=== PATIENT | female | born 1935 | race Caucasian/White ===

== ENCOUNTER 2018-07-13 11:52 | Inpatient (IN) | payer MEDICARE ==
--- NOTE | 2018-07-13 13:29 | ED PDOC ---
HPI: Trauma/Fall - HPI Time Seen by Provider: 07/13/18 12:40 Chief Complaint (Nursing): Trauma Chief Complaint (Provider): Trauma History Per: Patient, EMS History/Exam Limitations: no limitations Location Of Injury: Left: Face Additional Complaint(s): 83 years old female brought to ER by EMS after she was found outside on the street and sustained a laceration above left eyebrow. Patient is extremely confused and states EMS lied and she did not fall, not providing any info about family, and She cannot recall what actually happened or what year we are in or where she is right now. Patient refuses to be examined and denies any family member that can be contacted. in the chart there is a contact number- no answer. Dr Davenport as per daughter who came to bedside later on PMD: non provided Past Medical History Reviewed: Historical Data, Nursing Documentation, Vital Signs, Unable To Obtain (obtained some info from daughter) Vital Signs: Last Vital Signs Temp 98.5 F 07/13/18 11:57 Pulse 90 07/13/18 11:57 Resp 18 07/13/18 11:57 BP 169/86 H 07/13/18 11:57 Pulse Ox 95 07/13/18 11:57 - Medical History PMH: No Chronic Diseases - Surgical History Surgical History: No Surg Hx - Family History Family History: States: Unknown Family Hx - Social History Current smoker - smoking cessation education provided: No Alcohol: None Drugs: Denies - Home Medications Home Medications: Ambulatory Orders Medication Instructions Recorded Multivitamin with Minerals [Hair, 1 tab PO DAILY 07/13/18 Skin and Nails] - Allergies Allergies/Adverse Reactions: Allergies Allergy/AdvReac Type Severity Reaction Status Date / Time No Known Allergies Allergy Unverified 07/13/18 12:06 Review of Systems Review Of Systems: ROS cannot be obtained secondary to pt's inabilty to answer questions. Physical Exam - Physical Exam Appears: Positive for: Well, Non-toxic, No Acute Distress Head Exam: Positive for: NORMOCEPHALIC. Negative for: ATRAUMATIC (1.5 in laceration above left eyebrow, traversing part of the eyebrow itself. no active bleeding. no surrounding swelling or hematoma. ) Skin: Positive for: Normal Color, Warm, Dry Eye Exam: Positive for: Normal appearance ENT: Positive for: Normal ENT Inspection Neck: Positive for: Normal Cardiovascular/Chest: Positive for: Regular Rate, Rhythm Respiratory: Positive for: Normal Breath Sounds Gastrointestinal/Abdominal: Positive for: Normal Exam Extremity: Positive for: Normal ROM (ambulating w steady gait) Neurologic/Psych: Positive for: Alert. Negative for: Oriented, Aphasia, Facial Droop - Laboratory Results Result Diagrams: 07/14/18 05:45 07/14/18 05:45 - ECG O2 Sat by Pulse Oximetry: 95 (RA) Pulse Ox Interpretation: Normal Medical Decision Making Medical Decision Making: Time: 1308 Initial Plan: CONFUSION, FALL, LACERATION RULE OUT INFECTION, INTRACRANIAL BLEED --Head CT W/O Contrast --EKG --Troponin I --PTT --PT --Chest X-Ray --Urine Culture --Urinalysis --CMP --CBC --Haldol 2.5 mg IM --1:1 Observation initially during initial encouter pt not cooperative with examination, wont let me examine her, wont let me do CT head. she appears very confused and at time agitation. 1410 Patient needs sedation to relieve agitation - 2.5 mg haldol given however even with haldol pt still agitated, so given 1 mg ativan 1401 Chest X-Ray FINDINGS: LUNGS: No active pulmonary disease. PLEURA: No significant pleural effusion identified, no pneumothorax apparent. CARDIOVASCULAR: No radiographic findings to suggest acute or significant cardiovascular disease. OSSEOUS STRUCTURES: No significant abnormalities. VISUALIZED UPPER ABDOMEN: Normal. OTHER FINDINGS: None. IMPRESSION: No active disease. Time: 172 --Daughter is currently at bedside, she reports her mother has been confused for one day. Patient does not have a fever, no recent illnesses. Her mother was reportedly walking back from the bank when she fell. Case discussed with Dr. Whitaker, neurology, Dr. Ruby, medicine construction consultant. apparently pt pcp is Dr Davenport who doesnt admit here. Time: 183 Dr. Whitaker answered, will see patient as inpatient due to fall and rule out delirium vs dementia. also placed consult for cardiology construction consultant Dr White for EKG- LBBB (no prior), pvc see procedure note for laceration repair Scribe Attestation: Documented by Dinah Pettit, acting as a scribe for Maurice Momin MD. Provider Scribe Attestation: All medical record entries made by the Scribe were at my direction and personally dictated by me. I have reviewed the chart and agree that the record accurately reflects my personal performance of the history, physical exam, medical decision making, and the department course for this patient. I have also personally directed, reviewed, and agree with the discharge instructions and disposition. Procedures - Laceration/Wound Repair Left Upper Face Anesthesia: Lidocaine w/ Epi (3 cc) Wound Repaired With: Sutures Suture Size/Type: 6:0, nylon Number of Sutures: 4 Wound Complexity: Simple Progress: On the left forehead and after irrigation and cleaning 4 6:0 nylon sutures were placed without difficulty.Area was covered with bacitracin. Disposition - Clinical Impression Clinical Impression: Confusion, Fall - Patient ED Disposition Is Patient to be Admitted: Yes Counseled Patient/Family Regarding: Studies Performed, Diagnosis - Disposition Disposition Time: 17:04 Condition: FAIR - Pt Status Changed To: Hospital Disposition Of: Inpatient - Admit Certification Admit to Inpatient:: After my assessment, the patient will require h ospitalization for at least two midnights. This is because of the severity of symptoms shown, intensity of services needed, and/or the medical risk in this patient being treated as an outpatient.
[2018-07-13 13:51] LABS: PROTHROMBIN TIME 11.6 Seconds (9.8-13.1)
[2018-07-13 13:54] LABS: BASO % 0.3 % (0.0-2.0); EOS # 0.1 K/uL (0.0-0.7); EOS % 0.7 % (0.0-4.0); HEMOGLOBIN 13.9 g/dL (12.0-16.0); LYMPH # 1.6 K/uL (1.0-4.3); LYMPH % 14.8 % (20.0-40.0); MEAN CELL VOLUME 85.7 fl (81.0-99.0); MEAN CORPUSCULAR HEMOGLOBIN 28.5 pg (27.0-31.0); MEAN CORPUSCULAR HGB CONC 33.2 g/dL (33.0-37.0); MEAN PLATELET VOLUME 7.9 fl (7.2-11.7); MONO # 0.6 K/uL (0.0-0.8); MONO % 5.1 % (0.0-10.0); NEUT # 8.6 K/uL (1.8-7.0); NEUT % 79.1 % (50.0-75.0); NRBC % 0.1 % (0.0-0.0); PARTIAL THROMBOPLASTIN TIME 31.2 Seconds (25.6-37.1); RBC 4.89 Mil/uL (3.80-5.20); RED CELL DISTRIBUTION WIDTH 15.7 % (11.5-14.5); WHITE BLOOD COUNT 10.9 K/uL (4.8-10.8)
[2018-07-13] MEDS ORDERED: Tdap Vaccine 0.5 ml Vial (10-64 yrs) IM ONE ×3 (13:59→14:47)
[2018-07-13 14:03] LABS: ALB/GLOB RATIO 1.1 (1.0-2.1); ALBUMIN 4.7 g/dL (3.5-5.0); ALT/SGPT 29 U/L (9-52); AST/SGOT 24 U/L (14-36); BLOOD UREA NITROGEN 22 mg/dl (7-17); CALCIUM 9.6 mg/dL (8.4-10.2); GFR NON-AFRICAN AMERICAN > 60
--- NOTE | 2018-07-13 14:05 | RAD ---
Date of service: 07/13/2018 HISTORY: Trauma/fall. COMPARISON: No prior. FINDINGS: LUNGS: No active pulmonary disease. PLEURA: No significant pleural effusion identified, no pneumothorax apparent. CARDIOVASCULAR: No radiographic findings to suggest acute or significant cardiovascular disease. OSSEOUS STRUCTURES: No significant abnormalities. VISUALIZED UPPER ABDOMEN: Normal. OTHER FINDINGS: None. IMPRESSION: No active disease.
[2018-07-13 14:10] LABS: SQUAMOUS EPITHIAL 1 /hpf (0-5); URINE BACTERIA RARE (<OCC); URINE BILIRUBIN NEGATIVE (NEGATIVE); URINE BLOOD NEGATIVE (NEGATIVE); URINE CLARITY CLEAR (Clear); URINE COLOR YELLOW (YELLOW); URINE GLUCOSE (UA) NEG (Normal); URINE LEUKOCYTE ESTERASE TRACE Leu/uL (Negative); URINE PROTEIN 30 mg/dL (NEGATIVE); URINE UROBILINOGEN 0.2-1.0 mg/dL (0.2-1.0)
--- NOTE | 2018-07-13 16:17 | CT ---
Date of service: 07/13/2018 PROCEDURE: CT HEAD WITHOUT CONTRAST. HISTORY: headache COMPARISON: None available. TECHNIQUE: Axial computed tomography images were obtained through the head/brain without intravenous contrast. Radiation dose: Total exam DLP = 1482.17 mGy-cm. This CT exam was performed using one or more of the following dose reduction techniques: Automated exposure control, adjustment of the mA and/or kV according to patient size, and/or use of iterative reconstruction technique. FINDINGS: Limitations: Motion artifacts. Multiple series of been performed to attempt to overcome this problem. HEMORRHAGE: No intracranial hemorrhage. BRAIN: Good corticomedullary differentiation is seen. Proportional, diffuse expansion of the ventriculosulcal and cisternal spaces is appreciated with white matter lucency compatible with diffuse cerebral atrophy and chronic microangiopathy. No suspicious extra-axial fluid collection is identified and the midline brain anatomy appears grossly nonfocal as imaged. There is no mass effect throughout. VENTRICLES: Unremarkable. No hydrocephalus. CALVARIUM: No destructive bony lesion or displaced fracture identified including through the skullbase. PARANASAL SINUSES: Unremarkable as visualized. No significant inflammatory changes. MASTOID AIR CELLS: Unremarkable as visualized. No inflammatory changes. OTHER FINDINGS: None. IMPRESSION: Age-appropriate age related neuro degenerative changes are identified. No definite acute intracranial findings by standard CT criteria.
--- NOTE | 2018-07-13 16:56 | CT ---
Date of service: 07/13/18 CT maxillofacial bones without IV contrast Indication: Facial injury Comparison: None available Technique: Axial computed tomography images were obtained of the maxillofacial bones without the use of intravenous contrast. Coronal and sagittal reformatted images were generated and reviewed. This CT exam was performed using 1 or more of the following dose reduction techniques: Automated exposure control, adjustment of the MAA and/or kV according to patient size, and/or use of iterative reconstruction technique. Radiation dose: Total exam DLP = 735.66 mGy-cm. Findings: Soft tissue laceration, left frontal scalp. The facial bones appear intact without acute displaced fracture identified. The orbits appear unremarkable. The temporomandibular joints are located. Partial opacification/small fluid within the right mastoid air cells. The left mastoid air cells are clear. Mucosal thickening, left maxillary sinus. The paranasal sinuses appear otherwise clear. Streak artifact from dental hardware. 6 mm lucent rounded lesion within the right transverse process of C4 Impression: No acute displaced fracture or subluxation. Soft tissue laceration, left frontal scalp. Partial opacification/small fluid within the right mastoid air cells. Correlate clinically for mastoiditis. 6 mm lucent rounded lesion within the right transverse process of C4.
[2018-07-13] MEDS ORDERED: Lidocaine 1% Inj (20ml) IJ ONE (17:18)
[2018-07-13] MEDS ORDERED: Lidocaine 1% w Epi 1:100,000 Inj ONE (17:46)
[2018-07-13 18:15] LABS: VENOUS BLOOD GAS BASE EXCESS -0.2 mmol/L (0.0-2.0); VENOUS BLOOD GAS PCO2 47 mmHg (40-60); VENOUS BLOOD GAS PO2 29 mm/Hg (30-55); VENOUS BLOOD PH 7.35 (7.32-7.43)
[2018-07-13] MEDS ORDERED: ceFAZolin 1 GM in Sodium Chloride 0.9% 100 ML IVPB STA (18:28)
[2018-07-13 18:44] LABS: BARBITURATES, UR NEGATIVE (NEGATIVE); BENZODIAZEPINES, UR NEGATIVE (NEGATIVE); OPIATES, UR NEGATIVE (NEGATIVE); PHENCYCLIDINE, UR NEGATIVE (NEGATIVE)
[2018-07-14 06:25] LABS: HEMOGLOBIN 13.6 g/dL (12.0-16.0); MEAN CELL VOLUME 84.9 fl (81.0-99.0); MEAN CORPUSCULAR HEMOGLOBIN 28.8 pg (27.0-31.0); RBC 4.72 Mil/uL (3.80-5.20); RED CELL DISTRIBUTION WIDTH 15.6 % (11.5-14.5); WHITE BLOOD COUNT 7.4 K/uL (4.8-10.8)
[2018-07-14 06:40] LABS: ALB/GLOB RATIO 1.1 (1.0-2.1); ALBUMIN 4.1 g/dL (3.5-5.0); ALT/SGPT 23 U/L (9-52); AST/SGOT 26 U/L (14-36); BLOOD UREA NITROGEN 15 mg/dl (7-17); CALCIUM 9.3 mg/dL (8.4-10.2); GFR NON-AFRICAN AMERICAN > 60; HDL CHOLESTEROL 43 MG/DL (30-70)
[2018-07-14 06:45] LABS: LDL CHOLESTEROL 162 mg/dL (0-129)
--- NOTE | 2018-07-14 06:48 | CARD ---
APPROVED REPORT Date of service: 07/13/2018 EKG Measurement Heart [id number] <Conclusion> Sinus rhythm with blocked premature atrial complexes with premature supraventricular complexes Left axis deviation Left bundle branch block Abnormal ECG
--- NOTE | 2018-07-14 12:43 | CP.PCM.CON ---
History of Present Illness - History of Present Illness History of Present Illness: asked to see pt for syncope. At bedside pt confused. She states she didnt have syncope or facial trauma. pt is confused. aao x 1. ekg shows sr with lbbb and pvcs. pt denies cp, palp, lh, dizziness, sob or orthopnea. trop neg Review of Systems - Review of Systems Systems not reviewed;Unavailable: Altered Mental Status Past Patient History - Past Medical History & Family History Past Medical History?: No - Past Social History Smoking Status: Never Smoked Chewing Tobacco Use: No Cigar Use: No Alcohol: None Drugs: Denies Home Situation {Lives}: Alone Domestic Violence: Negative - CARDIAC Hx Cardiac Disorders: No - PULMONARY Hx Respiratory Disorders: No - NEUROLOGICAL Hx Neurological Disorder: No - HEENT Hx HEENT Problems: No - RENAL Hx Chronic Kidney Disease: No - ENDOCRINE/METABOLIC Hx Endocrine Disorders: No (a) - HEMATOLOGICAL/ONCOLOGICAL Hx Blood Disorders: No - INTEGUMENTARY Hx Dermatological Problems: No - MUSCULOSKELETAL/RHEUMATOLOGICAL Hx Falls: No - GASTROINTESTINAL Hx Gastrointestinal Disorders: No - GENITOURINARY/GYNECOLOGICAL Hx Genitourinary Disorders: No - PSYCHIATRIC Hx Psychophysiologic Disorder: No Hx Substance Use: No - SURGICAL HISTORY Hx Surgeries: No - ANESTHESIA Hx Anesthesia: No Hx Anesthesia Reactions: No Hx Malignant Hyperthermia: No Meds Allergies/Adverse Reactions: Allergies Allergy/AdvReac Type Severity Reaction Status Date / Time No Known Allergies Allergy Unverified 07/13/18 12:06 - Medications Medications: Current Medications Lorazepam (Ativan) 1 mg IVP Q8 PRN PRN Reason: Agitation Physical Exam - Constitutional Appears: Non-toxic - Head Exam Additional comments: facial bruising noted - Eye Exam Eye Exam: EOMI, Normal appearance, PERRL Pupil Exam: NORMAL ACCOMODATION, PERRL - ENT Exam ENT Exam: Mucous Membranes Moist, Normal Exam - Neck Exam Neck exam: Positive for: Normal Inspection - Respiratory Exam Respiratory Exam: Clear to Auscultation Bilateral, NORMAL BREATHING PATTERN - Cardiovascular Exam Cardiovascular Exam: REGULAR RHYTHM, +S1, +S2, Systolic Murmur - GI/Abdominal Exam GI & Abdominal Exam: Normal Bowel Sounds, Soft. absent: Bruit, Diminished Bowel Sounds, Distended, Firm, Guarding, Hernia, Hyperactive Bowel Sounds, Hypoactive Bowel Sounds, Mass, Organomegaly, Pulsatile Mass, Rebound, Rigid, Tenderness - Rectal Exam Rectal Exam: Deferred - Extremities Exam Extremities exam: Positive for: normal inspection, pedal pulses present. Negative for: calf tenderness, full ROM, joint swelling, normal capillary refill, pedal edema, tenderness - Back Exam Back exam: NORMAL INSPECTION. absent: CVA tenderness (L), CVA tenderness (R), FULL ROM, muscle spasm, paraspinal tenderness, rash noted, tenderness, vertebral tenderness - Neurological Exam Neurological exam: Altered, CN II-XII Intact, Normal Gait, Reflexes Normal - Psychiatric Exam Psychiatric exam: Normal Affect, Normal Mood - Skin Skin Exam: Dry, Intact, Normal Color, Warm Results - Vital Signs Recent Vital Signs: Last Vital Signs Temp 98.5 F 07/14/18 08:34 Pulse 65 07/14/18 08:34 Resp 20 07/14/18 08:34 BP 149/78 07/14/18 08:34 Pulse Ox 94 L 07/14/18 08:34 - Labs Result Diagrams: 07/15/18 04:00 07/15/18 04:00 Labs: Laboratory Results - last 24 hr 07/13/18 07/13/18 07/13/18 13:40 13:40 13:40 WBC 10.9 H RBC 4.89 Hgb 13.9 Hct 41.9 MCV 85.7 MCH 28.5 MCHC 33.2 RDW 15.7 H Plt Count 208 MPV 7.9 Neut % (Auto) 79.1 H Lymph % (Auto) 14.8 L Cotton % (Auto) 5.1 Eos % (Auto) 0.7 Baso % (Auto) 0.3 Neut # (Auto) 8.6 H Lymph # (Auto) 1.6 Cotton # (Auto) 0.6 Eos # (Auto) 0.1 Baso # (Auto) 0.0 PT 11.6 INR 1.0 APTT 31.2 pO2 VBG pH VBG pCO2 VBG HCO3 VBG Total CO2 VBG O2 Sat (Calc) VBG Base Excess VBG Potassium Glucose Lactate FiO2 Sodium 141 Potassium 3.9 Chloride 108 H Carbon Dioxide 23 Anion Gap 14 BUN 22 H Creatinine 0.7 Est GFR ( Amer) > 60 Est GFR (Non-Af Amer) > 60 Random Glucose 120 H Hemoglobin A1c Calcium 9.6 Total Bilirubin 0.5 AST 24 ALT 29 Alkaline Phosphatase 88 Troponin I 0.0160 Total Protein 8.9 H Albumin 4.7 Globulin 4.2 H Albumin/Globulin Ratio 1.1 Triglycerides Cholesterol LDL Cholesterol Direct HDL Cholesterol Venous Blood Potassium Urine Color Urine Clarity Urine pH Ur Specific [place] Urine Protein Urine Glucose (UA) Urine Ketones Urine Blood Urine Nitrate Urine Bilirubin Urine Urobilinogen Ur Leukocyte Esterase Urine RBC (Auto) Urine Microscopic WBC Ur Squamous Epith Cells Urine Bacteria Urine Opiates Screen Urine Methadone Screen Ur Barbiturates Screen Ur Phencyclidine Scrn Ur Amphetamines Screen U Benzodiazepines Scrn U Oth Cocaine Metabols U Cannabinoids Screen 07/13/18 07/13/18 07/13/18 13:50 18:00 18:12 WBC RBC Hgb Hct MCV MCH MCHC RDW Plt Count MPV Neut % (Auto) Lymph % (Auto) Cotton % (Auto) Eos % (Auto) Baso % (Auto) Neut # (Auto) Lymph # (Auto) Cotton # (Auto) Eos # (Auto) Baso # (Auto) PT INR APTT pO2 29 L VBG pH 7.35 VBG pCO2 47 VBG HCO3 23.5 VBG Total CO2 27.3 VBG O2 Sat (Calc) 59.2 VBG Base Excess -0.2 L VBG Potassium 3.8 Glucose 101 Lactate 1.9 FiO2 21.0 Sodium 140.0 Potassium Chloride 106.0 Carbon Dioxide Anion Gap BUN Creatinine Est GFR ( Amer) Est GFR (Non-Af Amer) Random Glucose Hemoglobin A1c Calcium Total Bilirubin AST ALT Alkaline Phosphatase Troponin I Total Protein Albumin Globulin Albumin/Globulin Ratio Triglycerides Cholesterol LDL Cholesterol Direct HDL Cholesterol Venous Blood Potassium 3.8 Urine Color Yellow Urine Clarity Clear Urine pH 6.0 Ur Specific [place] 1.018 Urine Protein 30 Urine Glucose (UA) Neg Urine Ketones Negative Urine Blood Negative Urine Nitrate Negative Urine Bilirubin Negative Urine Urobilinogen 0.2-1.0 Ur Leukocyte Esterase Trace Urine RBC (Auto) 2 Urine Microscopic WBC 1 Ur Squamous Epith Cells 1 Urine Bacteria Rare Urine Opiates Screen Negative Urine Methadone Screen Negative Ur Barbiturates Screen Negative Ur Phencyclidine Scrn Negative Ur Amphetamines Screen Negative U Benzodiazepines Scrn Negative U Oth Cocaine Metabols Negative U Cannabinoids Screen Negative 07/14/18 07/14/18 07/14/18 05:45 05:45 05:45 WBC 7.4 RBC 4.72 Hgb 13.6 Hct 40.1 MCV 84.9 MCH 28.8 MCHC 34.0 RDW 15.6 H Plt Count 194 MPV Neut % (Auto) Lymph % (Auto) Cotton % (Auto) Eos % (Auto) Baso % (Auto) Neut # (Auto) Lymph # (Auto) Cotton # (Auto) Eos # (Auto) Baso # (Auto) PT INR APTT pO2 VBG pH VBG pCO2 VBG HCO3 VBG Total CO2 VBG O2 Sat (Calc) VBG Base Excess VBG Potassium Glucose Lactate FiO2 Sodium 143 Potassium 3.8 Chloride 109 H Carbon Dioxide 28 Anion Gap 10 BUN 15 Creatinine 0.7 Est GFR ( Amer) > 60 Est GFR (Non-Af Amer) > 60 Random Glucose 87 Hemoglobin A1c 6.2 Calcium 9.3 Total Bilirubin 0.9 AST 26 ALT 23 Alkaline Phosphatase 63 Troponin I Total Protein 7.8 Albumin 4.1 Globulin 3.7 Albumin/Globulin Ratio 1.1 Triglycerides 127 Cholesterol 233 H LDL Cholesterol Direct 162 H HDL Cholesterol 43 Venous Blood Potassium Urine Color Urine Clarity Urine pH Ur Specific [place] Urine Protein Urine Glucose (UA) Urine Ketones Urine Blood Urine Nitrate Urine Bilirubin Urine Urobilinogen Ur Leukocyte Esterase Urine RBC (Auto) Urine Microscopic WBC Ur Squamous Epith Cells Urine Bacteria Urine Opiates Screen Urine Methadone Screen Ur Barbiturates Screen Ur Phencyclidine Scrn Ur Amphetamines Screen U Benzodiazepines Scrn U Oth Cocaine Metabols U Cannabinoids Screen - EKG Data EKG Interpreted by: Myself EKG shows normal: Sinus rhythm Assessment & Plan (1) LBBB (left bundle branch block) Status: Acute (2) Confusion Status: Acute (3) Syncope Status: Acute - Assessment and Plan (Free Text) Plan: check echo trop neg Unknown if LBBB is old or new, however without sx will not have pt undergo stress. 40 min total
--- NOTE | 2018-07-14 13:27 | CP.PCM.HP ---
History of Present Illness - History of Present Illness History of Present Illness: 83 years old female w/o relevant PMH is brought to ER by EMS after she was found outside on the floor and sustained a laceration above left eyebrow. As per daughter her mother was reportedly walking back from the bank when she fell. Tk mendez is extremely confused and states EMD lied and she did not fall. Patient cannot recall what actually happened or what year we are in or where she is right now. Patient refuses to be examined. PMD: Dr Davenport as per daughter PMH: denies PSH: denies FMH: noncontributory Meds: see guy NKDA SH: denies etoh, smoking or drugs use Present on Admission - Present on Admission Any Indicators Present on Admission: No Review of Systems - Review of Systems All systems: reviewed and no additional remarkable complaints except (HPI) Past Patient History - Past Medical History & Family History Past Medical History?: No - Past Social History Smoking Status: Never Smoked - MUSCULOSKELETAL/RHEUMATOLOGICAL Hx Falls: No - PSYCHIATRIC Hx Substance Use: No - SURGICAL HISTORY Hx Surgeries: No - ANESTHESIA Hx Anesthesia: No Hx Anesthesia Reactions: No Hx Malignant Hyperthermia: No Meds Allergies/Adverse Reactions: Allergies Allergy/AdvReac Type Severity Reaction Status Date / Time No Known Allergies Allergy Unverified 07/13/18 12:06 Physical Exam - Constitutional Appears: No Acute Distress - Head Exam Head Exam: NORMAL INSPECTION - Eye Exam Eye Exam: EOMI, PERRL - Respiratory Exam Respiratory Exam: Clear to Auscultation Bilateral - Cardiovascular Exam Cardiovascular Exam: REGULAR RHYTHM, +S1, +S2 - GI/Abdominal Exam GI & Abdominal Exam: Soft. absent: Distended, Tenderness - Extremities Exam Extremities exam: Negative for: calf tenderness - Neurological Exam Neurological exam: Alert Additional comments: Disoriented - Skin Skin Exam: Dry, Warm Additional comments: L eyebrow laceration ~1.5 cm, no active bleeding, stiches noted in place Results - Vital Signs Recent Vital Signs: Last Vital Signs Temp 98.5 F 07/14/18 08:34 Pulse 65 07/14/18 08:34 Resp 20 07/14/18 08:34 BP 149/78 07/14/18 08:34 Pulse Ox 94 L 07/14/18 08:34 - Labs Result Diagrams: 07/14/18 05:45 07/14/18 05:45 Labs: Laboratory Results - last 24 hr 07/13/18 07/13/18 07/13/18 13:40 13:40 13:40 WBC 10.9 H RBC 4.89 Hgb 13.9 Hct 41.9 MCV 85.7 MCH 28.5 MCHC 33.2 RDW 15.7 H Plt Count 208 MPV 7.9 Neut % (Auto) 79.1 H Lymph % (Auto) 14.8 L [place] % (Auto) 5.1 Eos % (Auto) 0.7 Baso % (Auto) 0.3 Neut # (Auto) 8.6 H Lymph # (Auto) 1.6 [place] # (Auto) 0.6 Eos # (Auto) 0.1 Baso # (Auto) 0.0 PT 11.6 INR 1.0 APTT 31.2 pO2 VBG pH VBG pCO2 VBG HCO3 VBG Total CO2 VBG O2 Sat (Calc) VBG Base Excess VBG Potassium Glucose Lactate FiO2 Sodium 141 Potassium 3.9 Chloride 108 H Carbon Dioxide 23 Anion Gap 14 BUN 22 H Creatinine 0.7 Est GFR ( Amer) > 60 Est GFR (Non-Af Amer) > 60 Random Glucose 120 H Hemoglobin A1c Calcium 9.6 Total Bilirubin 0.5 AST 24 ALT 29 Alkaline Phosphatase 88 Troponin I 0.0160 Total Protein 8.9 H Albumin 4.7 Globulin 4.2 H Albumin/Globulin Ratio 1.1 Triglycerides Cholesterol LDL Cholesterol Direct HDL Cholesterol Venous Blood Potassium Urine Color Urine Clarity Urine pH Ur Specific [place] Urine Protein Urine Glucose (UA) Urine Ketones Urine Blood Urine Nitrate Urine Bilirubin Urine Urobilinogen Ur Leukocyte Esterase Urine RBC (Auto) Urine Microscopic WBC Ur Squamous Epith Cells Urine Bacteria Urine Opiates Screen Urine Methadone Screen Ur Barbiturates Screen Ur Phencyclidine Scrn Ur Amphetamines Screen U Benzodiazepines Scrn U Oth Cocaine Metabols U Cannabinoids Screen 07/13/18 07/13/18 07/13/18 13:50 18:00 18:12 WBC RBC Hgb Hct MCV MCH MCHC RDW Plt Count MPV Neut % (Auto) Lymph % (Auto) [place] % (Auto) Eos % (Auto) Baso % (Auto) Neut # (Auto) Lymph # (Auto) [place] # (Auto) Eos # (Auto) Baso # (Auto) PT INR APTT pO2 29 L VBG pH 7.35 VBG pCO2 47 VBG HCO3 23.5 VBG Total CO2 27.3 VBG O2 Sat (Calc) 59.2 VBG Base Excess -0.2 L VBG Potassium 3.8 Glucose 101 Lactate 1.9 FiO2 21.0 Sodium 140.0 Potassium Chloride 106.0 Carbon Dioxide Anion Gap BUN Creatinine Est GFR ( Amer) Est GFR (Non-Af Amer) Random Glucose Hemoglobin A1c Calcium Total Bilirubin AST ALT Alkaline Phosphatase Troponin I Total Protein Albumin Globulin Albumin/Globulin Ratio Triglycerides Cholesterol LDL Cholesterol Direct HDL Cholesterol Venous Blood Potassium 3.8 Urine Color Yellow Urine Clarity Clear Urine pH 6.0 Ur Specific [place] 1.018 Urine Protein 30 Urine Glucose (UA) Neg Urine Ketones Negative Urine Blood Negative Urine Nitrate Negative Urine Bilirubin Negative Urine Urobilinogen 0.2-1.0 Ur Leukocyte Esterase Trace Urine RBC (Auto) 2 Urine Microscopic WBC 1 Ur Squamous Epith Cells 1 Urine Bacteria Rare Urine Opiates Screen Negative Urine Methadone Screen Negative Ur Barbiturates Screen Negative Ur Phencyclidine Scrn Negative Ur Amphetamines Screen Negative U Benzodiazepines Scrn Negative U Oth Cocaine Metabols Negative U Cannabinoids Screen Negative 07/14/18 07/14/18 07/14/18 05:45 05:45 05:45 WBC 7.4 RBC 4.72 Hgb 13.6 Hct 40.1 MCV 84.9 MCH 28.8 MCHC 34.0 RDW 15.6 H Plt Count 194 MPV Neut % (Auto) Lymph % (Auto) [place] % (Auto) Eos % (Auto) Baso % (Auto) Neut # (Auto) Lymph # (Auto) [place] # (Auto) Eos # (Auto) Baso # (Auto) PT INR APTT pO2 VBG pH VBG pCO2 VBG HCO3 VBG Total CO2 VBG O2 Sat (Calc) VBG Base Excess VBG Potassium Glucose Lactate FiO2 Sodium 143 Potassium 3.8 Chloride 109 H Carbon Dioxide 28 Anion Gap 10 BUN 15 Creatinine 0.7 Est GFR ( Amer) > 60 Est GFR (Non-Af Amer) > 60 Random Glucose 87 Hemoglobin A1c 6.2 Calcium 9.3 Total Bilirubin 0.9 AST 26 ALT 23 Alkaline Phosphatase 63 Troponin I Total Protein 7.8 Albumin 4.1 Globulin 3.7 Albumin/Globulin Ratio 1.1 Triglycerides 127 Cholesterol 233 H LDL Cholesterol Direct 162 H HDL Cholesterol 43 Venous Blood Potassium Urine Color Urine Clarity Urine pH Ur Specific [place] Urine Protein Urine Glucose (UA) Urine Ketones Urine Blood Urine Nitrate Urine Bilirubin Urine Urobilinogen Ur Leukocyte Esterase Urine RBC (Auto) Urine Microscopic WBC Ur Squamous Epith Cells Urine Bacteria Urine Opiates Screen Urine Methadone Screen Ur Barbiturates Screen Ur Phencyclidine Scrn Ur Amphetamines Screen U Benzodiazepines Scrn U Oth Cocaine Metabols U Cannabinoids Screen Assessment & Plan - Assessment and Plan (Free Text) Assessment: 83 years old female w/o relevant PMH admitted due to confusion of new onset r/o dementia vs delirium. Plan: - admit to [facility] - afebril, no medical issues - s/p haldol - EKG: sinus rhythm with PAC - head CT: negative for bleeding, masses or fractures - CXR: No active disease. - cbc and cmp wnl, UA negative for UTI, urine drug negative - Troponins negative x3 - Cardio consulted, appreciated recommendations - Neurology consulted, recommendations appreciated. - will monitor, rest of plan as ordered - f/u labs and echo in am Case seen and examined with Dr Salvador
--- NOTE | 2018-07-14 20:06 | CP.PCM.CON ---
History of Present Illness - History of Present Illness History of Present Illness: Neurology Consultation Note: Mrs. Crawford is an 83-year-old woman, who was referred to me by Dr. Ruby, after she reportedly had a fall on her way back from the back, probable LOC, and subsequent confusion. Non-contrast CT scan of the head did not show any acute findings. When I saw the patient, she continued to be confused and was not certain about why she was in the hospital. She admitted to having a fall 2 weeks ago, but does not recall falling yesterday. Review of Systems - Review of Systems Systems not reviewed;Unavailable: Altered Mental Status Past Patient History - Past Medical History & Family History Past Medical History?: No - Past Social History Smoking Status: Never Smoked - MUSCULOSKELETAL/RHEUMATOLOGICAL Hx Falls: No - PSYCHIATRIC Hx Substance Use: No - SURGICAL HISTORY Hx Surgeries: No - ANESTHESIA Hx Anesthesia: No Hx Anesthesia Reactions: No Hx Malignant Hyperthermia: No Meds Allergies/Adverse Reactions: Allergies Allergy/AdvReac Type Severity Reaction Status Date / Time No Known Allergies Allergy Unverified 07/13/18 12:06 - Medications Medications: Current Medications Lorazepam (Ativan) 1 mg IVP Q8 PRN PRN Reason: Agitation Physical Exam - Constitutional Appears: Well - Head Exam Additional comments: laceration over left eye with some echymosis under the eye - Eye Exam Eye Exam: Periorbital swelling - ENT Exam ENT Exam: Mucous Membranes Moist, Normal Exam - Neck Exam Neck exam: Positive for: Full Rom, Normal Inspection - Respiratory Exam Respiratory Exam: Clear to Auscultation Bilateral, NORMAL BREATHING PATTERN - Cardiovascular Exam Cardiovascular Exam: REGULAR RHYTHM, +S1, +S2 - GI/Abdominal Exam GI & Abdominal Exam: Normal Bowel Sounds, Soft. absent: Tenderness - Rectal Exam Rectal Exam: Deferred - Back Exam Back exam: NORMAL INSPECTION - Neurological Exam Neurological exam: Alert, CN II-XII Intact, Normal Gait, Oriented x3, Reflexes Normal - Psychiatric Exam Psychiatric exam: Normal Affect, Normal Mood Results - Vital Signs Recent Vital Signs: Last Vital Signs Temp 98.3 F 07/14/18 16:31 Pulse 61 07/14/18 16:31 Resp 18 07/14/18 16:31 BP 156/79 H 07/14/18 16:31 Pulse Ox 95 07/14/18 16:31 - Labs Result Diagrams: 07/14/18 05:45 07/14/18 05:45 Labs: Laboratory Results - last 24 hr 07/14/18 07/14/18 07/14/18 05:45 05:45 05:45 WBC 7.4 RBC 4.72 Hgb 13.6 Hct 40.1 MCV 84.9 MCH 28.8 MCHC 34.0 RDW 15.6 H Plt Count 194 Sodium 143 Potassium 3.8 Chloride 109 H Carbon Dioxide 28 Anion Gap 10 BUN 15 Creatinine 0.7 Est GFR ( Amer) > 60 Est GFR (Non-Af Amer) > 60 Random Glucose 87 Hemoglobin A1c 6.2 Calcium 9.3 Total Bilirubin 0.9 AST 26 ALT 23 Alkaline Phosphatase 63 Total Protein 7.8 Albumin 4.1 Globulin 3.7 Albumin/Globulin Ratio 1.1 Triglycerides 127 Cholesterol 233 H LDL Cholesterol Direct 162 H HDL Cholesterol 43 Assessment & Plan (1) Syncope Assessment and Plan: It is not clear what actually transpired, but it appears that the patient fell, probably lost consciousness and has lacerations on her head. There is no evidence of intracranial injury on CT head. However, the patient will require cardiac work-up and should be on telemetry. I recommend CTA of the head/neck to rule out VBI as well. Status: Acute (2) Confusion Assessment and Plan: The patient continues to be confused and does not really know why she is in the hospital. I recommend obtaining an EEG for further evaluation. If this is normal, then an MRI of the brain can also be obtained as an outpatient for further work-up. Thank you for this consultation. Status: Acute
--- NOTE | 2018-07-14 20:46 | CARD ---
APPROVED REPORT Date of service: 07/14/2018 EXAM: Two-dimensional and M-mode echocardiogram with Doppler and color Doppler. Other Information Quality : AverageRhythm : NSR INDICATION Fall 2D DIMENSIONS IVSd0.91 (0.7-1.1cm)LVDd4.19 (3.9-5.9cm) LVOT Diameter1.71 (1.8-2.4cm)PWd0.83 (0.7-1.1cm) IVSs1.13 (0.8-1.2cm)LVDs3.28 (2.5-4.0cm) FS (%) 21.6 %PWs1.27 (0.8-1.2cm) M-Mode DIMENSIONS Left Atrium (MM)2.53 (2.5-4.0cm)Aortic Root3.47 (2.2-3.7cm) Aortic Cusp Exc.2.44 (1.5-2.0cm) Aortic Valve AoV Peak Wrukzhip334.8cm/sAoV VTI21.8cmAO Peak GR.5mmHg LVOT Peak Arkcliap04.5cm/Lia Mean GR.3mmHgAVA (VMAX)0.83cm2 Mitral Valve MV E Stspafvf76.8cm/sMV DECEL [id number] A Ncegutnb28.3cm/s MV AYB52bnP/A ratio0.5MVA (PHT)2.73cm2 TDI Lateral E' Peak V7.09cm/sMedial E' Peak V3.75cm/sE/Lateral E'7.2 E/Medial E'13.5 Tricuspid Valve TR Peak Wzxjzlzl750iq/sRAP [id number] Peak Gr.18mmHg [id number] LEFT VENTRICLE The left ventricle is normal size. There is normal left ventricular wall thickness. The left ventricular systolic function is normal. The estimated ejection fraction is 55-60% No regional wall motion abnormalities noted.. Transmitral Doppler flow pattern is Grade I-abnormal relaxation pattern. No left ventricle thrombus noted on this study. There is no ventricular septal defect visualized. There is no left ventricular aneurysm. There is no mass noted in the left ventricle. RIGHT VENTRICLE The right ventricle is normal size. There is normal right ventricular wall thickness. The right ventricular systolic function is normal. ATRIA The left atrium size is normal. The right atrium size is normal. The interatrial septum is intact with no evidence for an atrial septal defect. AORTIC VALVE The aortic valve is normal in structure. Trace to mild aortic regurgitation is present. There is no aortic valvular stenosis. There is no aortic valvular vegetation. MITRAL VALVE The mitral valve is normal in structure. There is no evidence of mitral valve prolapse. There is no mitral valve stenosis. There is no mitral valve regurgitation noted. TRICUSPID VALVE The tricuspid valve is normal in structure. There is mild tricuspid valve regurgitation noted. RVSP is calculated at 29 mm Hg. There is no tricuspid valve prolapse or vegetation. There is no tricuspid valve stenosis. PULMONIC VALVE The pulmonary valve is normal in structure. There is no pulmonic valvular regurgitation. There is no pulmonic valvular stenosis. GREAT VESSELS The aortic root is normal in size. The ascending aorta is normal in size. The pulmonary artery is normal. The IVC is normal in size and collapses >50% with inspiration. PERICARDIAL EFFUSION There is no pericardial effusion. There is no pleural effusion. <Conclusion> The estimated ejection fraction is 55-60% Transmitral Doppler flow pattern is Grade I-abnormal relaxation pattern. The left atrium size is normal. Trace to mild aortic regurgitation is present. There is mild tricuspid valve regurgitation noted. RVSP is calculated at 29 mm Hg.
[2018-07-15 12:02] LABS: BASO # 0.1 K/uL (0.0-0.2); BASO % 0.7 % (0.0-2.0); EOS # 0.1 K/uL (0.0-0.7); EOS % 1.4 % (0.0-4.0); HEMOGLOBIN 14.2 g/dL (12.0-16.0); LYMPH # 1.9 K/uL (1.0-4.3); MEAN CELL VOLUME 86.1 fl (81.0-99.0); MEAN CORPUSCULAR HEMOGLOBIN 28.4 pg (27.0-31.0); MEAN PLATELET VOLUME 8.3 fl (7.2-11.7); MONO # 0.6 K/uL (0.0-0.8); MONO % 7.1 % (0.0-10.0); NEUT # 5.8 K/uL (1.8-7.0); NEUT % 68.8 % (50.0-75.0); RBC 4.99 Mil/uL (3.80-5.20); RED CELL DISTRIBUTION WIDTH 15.9 % (11.5-14.5); WHITE BLOOD COUNT 8.4 K/uL (4.8-10.8)
[2018-07-15] MEDS: Enoxaparin 40 mg Syringe SC SCH (12:03)
[2018-07-15 12:18] LABS: ALB/GLOB RATIO 1.1 (1.0-2.1); ALBUMIN 4.4 g/dL (3.5-5.0); ALT/SGPT 29 U/L (9-52); AST/SGOT 29 U/L (14-36); BLOOD UREA NITROGEN 18 mg/dl (7-17); CALCIUM 9.6 mg/dL (8.4-10.2); GFR NON-AFRICAN AMERICAN > 60
--- NOTE | 2018-07-15 13:06 | CP.PCM.PN ---
Subjective - Date & Time of Evaluation Date of Evaluation: 07/15/18 Time of Evaluation: 13:06 - Subjective Subjective: Patient seen and examined today at bedside, family in room, reports feeling better, no complaints at this time Afebrile. VSS, patient to be transferred to [facility] for close monitoring as per Neuro Objective - Vital Signs/Intake and Output Vital Signs (last 24 hours): Temp Pulse Resp BP Pulse Ox 98.1 F 82 17 155/92 H 98 07/15/18 12:35 07/15/18 12:35 07/15/18 12:35 07/15/18 12:35 07/15/18 12:35 - Medications Medications: Current Medications Enoxaparin Sodium (Lovenox) 40 mg SC DAILY KARLEE; Protocol Last Admin: 07/15/18 12:03 Dose: 40 mg Lorazepam (Ativan) 1 mg IVP Q8 PRN PRN Reason: Agitation - Labs Labs: 07/15/18 04:00 07/15/18 04:00 PT 11.6 Seconds (9.8-13.1) 07/13/18 13:40 INR 1.0 07/13/18 13:40 APTT 31.2 Seconds (25.6-37.1) 07/13/18 13:40 - Constitutional Appears: No Acute Distress - Head Exam Head Exam: NORMAL INSPECTION - Eye Exam Eye Exam: EOMI, PERRL - Respiratory Exam Respiratory Exam: Clear to Ausculation Bilateral - Cardiovascular Exam Cardiovascular Exam: REGULAR RHYTHM, +S1, +S2 - GI/Abdominal Exam GI & Abdominal Exam: Soft. absent: Distended, Tenderness - Extremities Exam Extremities Exam: absent: Calf Tenderness - Neurological Exam Neurological Exam: Alert, Awake, Oriented x3 - Skin Additional comments: L eyebrow laceration ~1.5 cm, no active bleeding, stiches noted in place, bruise noted on lower left eyelid and chin Assessment and Plan - Assessment and Plan (Free Text) Assessment: 83 years old female w/o relevant PMH admitted due to confusion of new onset r/o dementia vs delirium. S/P fall Plan: - afebril, no medical issues - EKG: sinus rhythm with PAC - head CT: negative for bleeding, masses or fractures - CXR: No active disease. - Troponins negative x3, echo no acute changes, EF 55-60% - Cardio consulted, appreciated recommendations - Neurology consulted, recommendations appreciated. - CTA head - transfer to tele - rest of plan as ordered Case seen and examined with Dr Randolphuez
[2018-07-15] MEDS ORDERED: Sodium Chloride 0.9% 50 ML IV ONE (15:22)
[2018-07-15] MEDS ORDERED: Iodixanol 320 MG/ML 100 ML BOTTLE IV ONE (15:22)
--- NOTE | 2018-07-15 16:43 | CT ---
PROCEDURE: CTA HEAD AND NECK WITH CONTRAST HISTORY: Syncope and confusion COMPARISON: None available. TECHNIQUE: Initial noncontrast head CT was performed. Subsequently, CT angiogram of the head and neck were performed after the intravenous administration of 80 mL of Omnipaque 350. Contiguous 1.5mm thick images were obtained in the axial plane of the neck. 2-D coronal and sagittal MPR images were obtained. Imaging postprocessing was performed with 3-D images also obtained. A delayed contrast head CT was also obtained. This CT exam was performed using one or more of the following dose reduction techniques: Automated exposure control, adjustment of the mA and/or kV according to patient size, and/or use of iterative reconstruction technique. Contrast dose: 80 mL Visipaque 320 Radiation dose: Total exam DLP = 369.57 mGy-cm. FINDINGS: HEAD: Right: The intracranial internal carotid artery, and anterior and middle cerebral arteries are widely patent. The A1 segment is hypoplastic, an anatomic variant. Left: The intracranial internal carotid artery, and anterior and middle cerebral arteries are widely patent. Posterior circulation: The visualized intracranial vertebral arteries, basilar artery and posterior cerebral arteries are widely patent. There is origin of the right posterior cerebral artery, an anatomic variant. There is no endoluminal filling defect to suggest thrombus. There is no intracranial saccular aneurysm. NECK: There is a three vessel aortic arch. There is no stenosis at the origins of the great vessels at the level of the aortic arch. No atherosclerotic calcification or mural plaque present. Right Carotid: On the right, the common carotid, internal carotid and external carotid arteries are widely patent. There is no hemodynamically significant stenosis in the internal carotid artery by NASCET criteria. Left Carotid: On the left, the common carotid, internal carotid and external carotid arteries are widely patent. There is no hemodynamically significant stenosis in the internal carotid artery by NASCET criteria. The vertebral arteries are widely patent. The vertebral artery is hypoplastic, an anatomic variant. The visualized soft tissues of the neck are normal. The visualized brain and cervical spine are within normal limits. The lung apices are clear. IMPRESSION: 1. No evidence of endoluminal thrombus,occlusion or definite significant stenosis in the intracranial arteries. 2. No evidence of hemodynamically significant stenosis in the internal carotid arteries. 3. Patent bilateral vertebral arteries.
[2018-07-15 17:24] LABS: FOLATE 11.6 ng/mL
[2018-07-16] MEDS: Enoxaparin 40 mg Syringe SC SCH (08:41)
--- NOTE | 2018-07-16 10:45 | CP.PCM.CON ---
History of Present Illness - History of Present Illness History of Present Illness: Psychiatry consult note CC: Fall HPI: 83 yo female presented s/p fall and with confusion. Patient does not believe she has any memory deficits, despite not knowing the year or her current location. She denies depression/anxiety/AH/VH/SI/HI. She does not want to take psychiatric medications and believes she can take care of all of her basic needs (cook, cleaning, shopping). Patient was interviewed with daughter present, who confirmed that the patient has had progressively worse memory. PPHx: Denies past psychiatric history PMHx: Denies chronic medical issues SHx: Denies drugs/etoh/cig use; lives with sister MSE: A + O x self and hospital, not city or date, knew president bryon, calm, cooperative, visibly bruised face, mood/affect- neutral, no AH/VH/SI/HI; poor I/J Impression: 83 yo female likely w/ neurocognitive impairment, not currently agreeable to taking any medications. Recommendations: -Start treatment with Aricept or Namenda if patient is agreeable; family does not currently have POA -No acute inpatient psychiatric admission indicated at this time -Patient would benefit from at home services if she is agreeable Past Patient History - Past Medical History & Family History Past Medical History?: No - Past Social History Alcohol: None Drugs: Denies - MUSCULOSKELETAL/RHEUMATOLOGICAL Hx Falls: No - PSYCHIATRIC Hx Substance Use: No - SURGICAL HISTORY Hx Surgeries: No - ANESTHESIA Hx Anesthesia: No Hx Anesthesia Reactions: No Hx Malignant Hyperthermia: No Meds Allergies/Adverse Reactions: Allergies Allergy/AdvReac Type Severity Reaction Status Date / Time No Known Allergies Allergy Unverified 07/13/18 12:06 - Medications Medications: Current Medications Enoxaparin Sodium (Lovenox) 40 mg SC DAILY KARLEE; Protocol Last Admin: 07/16/18 08:41 Dose: Not Given Lorazepam (Ativan) 1 mg IVP Q8 PRN PRN Reason: Agitation Last Admin: 07/15/18 16:11 Dose: 1 mg Results - Vital Signs Recent Vital Signs: Last Vital Signs Temp 98.0 F 07/16/18 07:53 Pulse 66 07/16/18 07:53 Resp 18 07/16/18 07:53 BP 148/88 07/16/18 07:53 Pulse Ox 96 07/16/18 07:53 - Labs Result Diagrams: 07/15/18 04:00 07/15/18 04:00 Labs: Laboratory Results - last 24 hr 07/15/18 07/15/18 07/15/18 04:00 04:00 04:00 WBC 8.4 RBC 4.99 Hgb 14.2 Hct 42.9 MCV 86.1 MCH 28.4 MCHC 33.0 RDW 15.9 H Plt Count 205 MPV 8.3 Neut % (Auto) 68.8 Lymph % (Auto) 22.0 [place] % (Auto) 7.1 Eos % (Auto) 1.4 Baso % (Auto) 0.7 Neut # (Auto) 5.8 Lymph # (Auto) 1.9 [place] # (Auto) 0.6 Eos # (Auto) 0.1 Baso # (Auto) 0.1 Sodium 142 Potassium 4.2 Chloride 105 Carbon Dioxide 27 Anion Gap 14 BUN 18 H Creatinine 0.7 Est GFR ( Amer) > 60 Est GFR (Non-Af Amer) > 60 Random Glucose 109 H Calcium 9.6 Total Bilirubin 0.5 AST 29 ALT 29 Alkaline Phosphatase 69 Total Protein 8.5 H Albumin 4.4 Globulin 4.0 H Albumin/Globulin Ratio 1.1 Vitamin B12 583 Folate 11.6 RPR 07/15/18 11:50 WBC RBC Hgb Hct MCV MCH MCHC RDW Plt Count MPV Neut % (Auto) Lymph % (Auto) [place] % (Auto) Eos % (Auto) Baso % (Auto) Neut # (Auto) Lymph # (Auto) [place] # (Auto) Eos # (Auto) Baso # (Auto) Sodium Potassium Chloride Carbon Dioxide Anion Gap BUN Creatinine Est GFR ( Amer) Est GFR (Non-Af Amer) Random Glucose Calcium Total Bilirubin AST ALT Alkaline Phosphatase Total Protein Albumin Globulin Albumin/Globulin Ratio Vitamin B12 Folate RPR Nonreactive
--- NOTE | 2018-07-16 12:58 | CP.PCM.PN ---
Subjective - Date & Time of Evaluation Date of Evaluation: 07/16/18 Time of Evaluation: 12:58 - Subjective Subjective: no acute events. Objective - Vital Signs/Intake and Output Vital Signs (last 24 hours): Temp Pulse Resp BP Pulse Ox 98.1 F 77 18 127/81 95 07/16/18 11:49 07/16/18 11:49 07/16/18 11:49 07/16/18 11:49 07/16/18 11:49 - Medications Medications: Current Medications Enoxaparin Sodium (Lovenox) 40 mg SC DAILY [facility]; Protocol Last Admin: 07/16/18 08:41 Dose: Not Given Lorazepam (Ativan) 1 mg IVP Q8 PRN PRN Reason: Agitation Last Admin: 07/15/18 16:11 Dose: 1 mg Memantine (Namenda) 5 mg PO BID [facility] - Labs Labs: 07/15/18 04:00 07/15/18 04:00 PT 11.6 Seconds (9.8-13.1) 07/13/18 13:40 INR 1.0 07/13/18 13:40 APTT 31.2 Seconds (25.6-37.1) 07/13/18 13:40 - Constitutional Appears: Well - Head Exam Head Exam: ATRAUMATIC, NORMAL INSPECTION, NORMOCEPHALIC - Eye Exam Eye Exam: EOMI, Normal appearance, PERRL. absent: Conjunctival injection, Nys tagmus, Periorbital swelling, Periorbital tenderness, Scleral icterus Pupil Exam: NORMAL ACCOMODATION, PERRL - ENT Exam ENT Exam: Mucous Membranes Moist, Normal Exam. absent: Mucous Membranes Dry, Normal External Ear Exam, Normal Oropharynx, TM's Normal Bilaterally - Neck Exam Neck Exam: Full ROM, Normal Inspection. absent: Lymphadenopathy, Meningismus, Tenderness, Thyromegaly - Respiratory Exam Respiratory Exam: Clear to Ausculation Bilateral, NORMAL BREATHING PATTERN. absent: Accessory Muscle Use, Chest Wall Tenderness, Decreased Breath Sounds, Pr olonged Expiratory Phase, Rales, Rhonchi, Wheezes, Respiratory Distress, Stridor - Cardiovascular Exam Cardiovascular Exam: REGULAR RHYTHM, +S1, +S2, Murmur. absent: Bradycardia, Tachycardia, Clicks, Diastolic murmur, Gallop, Irregular Rhythm, JVD, RRR, Rubs, +S4 - GI/Abdominal Exam GI & Abdominal Exam: Soft, Normal Bowel Sounds. absent: Bruit, Distended, Firm, Guarding, Rigid, Tenderness, Diminished Bowel Sounds, Hernia, Hyperactive Bowel Sounds, Hypoactive Bowel Sounds, Organomegaly, Pulsatile Mass, Rebound, Mass - Extremities Exam Extremities Exam: Full ROM, Normal Capillary Refill, Normal Inspection. absent: Calf Tenderness, Joint Swelling, Pedal Edema, Tenderness - Back Exam Back Exam: NORMAL INSPECTION - Neurological Exam Neurological Exam: Awake, CN II-XII Intact, Normal Gait. absent: Abnormal Gait, Alert, Altered, Motor Sensory Deficit, Oriented x3, Reflexes Normal - Psychiatric Exam Psychiatric exam: Normal Affect, Normal Mood. absent: Agitated, Anxious, Depressed, Flat Affect, Homicidal Ideation, Manic, Suicidal Ideation - Skin Skin Exam: Dry, Intact, Normal Color, Warm. absent: Abrasion, Cyanosis, Diaphoretic, Erythema, Mottled, Pallor, Pallor, Petechiae, Rash, Urticaria, Vesicles Assessment and Plan (1) Confusion Status: Acute (2) LBBB (left bundle branch block) Status: Acute (3) Syncope Status: Acute - Assessment and Plan (Free Text) Plan: doing well. stable. will sign off at this point.
--- NOTE | 2018-07-16 12:58 | CP.PCM.PN ---
Subjective - Date & Time of Evaluation Date of Evaluation: 07/15/18 Time of Evaluation: 13:00 - Subjective Subjective: no cp or sob Objective - Vital Signs/Intake and Output Vital Signs (last 24 hours): Temp Pulse Resp BP Pulse Ox 98.1 F 77 18 127/81 95 07/16/18 11:49 07/16/18 11:49 07/16/18 11:49 07/16/18 11:49 07/16/18 11:49 - Medications Medications: Current Medications Enoxaparin Sodium (Lovenox) 40 mg SC DAILY [facility]; Protocol Last Admin: 07/16/18 08:41 Dose: Not Given Lorazepam (Ativan) 1 mg IVP Q8 PRN PRN Reason: Agitation Last Admin: 07/15/18 16:11 Dose: 1 mg Memantine (Namenda) 5 mg PO BID [facility] - Labs Labs: 07/15/18 04:00 07/15/18 04:00 PT 11.6 Seconds (9.8-13.1) 07/13/18 13:40 INR 1.0 07/13/18 13:40 APTT 31.2 Seconds (25.6-37.1) 07/13/18 13:40 - Constitutional Appears: Non-toxic - Head Exam Additional comments: facial ecchymosis - Eye Exam Eye Exam: EOMI, Normal appearance, PERRL. absent: Conjunctival injection, Nystagmus, Periorbital swelling, Periorbital tenderness, Scleral icterus Pupil Exam: NORMAL ACCOMODATION, PERRL - ENT Exam ENT Exam: Mucous Membranes Moist, Normal Exam. absent: Mucous Membranes Dry, Normal External Ear Exam, Normal Oropharynx, TM's Normal Bilaterally - Neck Exam Neck Exam: Full ROM, Normal Inspection. absent: Lymphadenopathy - Respiratory Exam Respiratory Exam: Clear to Ausculation Bilateral, NORMAL BREATHING PATTERN. absent: Accessory Muscle Use, Chest Wall Tenderness, Decreased Breath Sounds, Prolonged Expiratory Phase, Rales, Rhonchi, Wheezes, Respiratory Distress, Stridor - Cardiovascular Exam Cardiovascular Exam: REGULAR RHYTHM, +S1, +S2, Murmur. absent: Bradycardia, Tachycardia, Clicks, Diastolic murmur, Gallop, Irregular Rhythm, JVD, RRR, Rubs, +S4 - GI/Abdominal Exam GI & Abdominal Exam: Soft, Normal Bowel Sounds. absent: Bruit, Distended, Firm, Guarding, Rigid, Tenderness, Diminished Bowel Sounds, Hernia, Hyperactive Bowel Sounds, Hypoactive Bowel Sounds, Organomegaly, Pulsatile Mass, Rebound, Mass - Extremities Exam Extremities Exam: Full ROM, Normal Capillary Refill, Normal Inspection. absent: Calf Tenderness, Joint Swelling, Pedal Edema, Tenderness - Back Exam Back Exam: NORMAL INSPECTION. absent: CVA tenderness (L), CVA tenderness (R), Full ROM, muscle spasm, paraspinal tenderness, rash noted, tenderness, vertebral tenderness - Neurological Exam Neurological Exam: Alert, Awake, CN II-XII Intact, Normal Gait, Oriented x3. absent: Abnormal Gait, Altered, Motor Sensory Deficit, Reflexes Normal - Psychiatric Exam Psychiatric exam: Normal Affect, Normal Mood. absent: Agitated, Anxious, Depressed, Flat Affect, Homicidal Ideation, Manic, Suicidal Ideation - Skin Skin Exam: Dry, Intact, Normal Color, Warm. absent: Abrasion, Cyanosis, Diaph oretic, Erythema, Mottled, Pallor, Pallor, Petechiae, Rash, Urticaria, Vesicles Assessment and Plan (1) Confusion Status: Acute (2) LBBB (left bundle branch block) Status: Acute (3) Syncope Status: Acute - Assessment and Plan (Free Text) Plan: EF is normal. no sig valvular heart disease. conservative management.
[2018-07-17] MEDS: Enoxaparin 40 mg Syringe SC SCH (09:11)
[2018-07-18] MEDS: Enoxaparin 40 mg Syringe SC SCH (08:56)
--- NOTE | 2018-07-19 07:44 | CP.PCM.PN ---
Subjective - Date & Time of Evaluation Date of Evaluation: 07/16/18 Time of Evaluation: 11:00 - Subjective Subjective: patient is still very confused noted to have unstable gait. Still with no recollection of the event where she fell. has no headaches Objective - Vital Signs/Intake and Output Vital Signs (last 24 hours): Temp Pulse Resp BP Pulse Ox 98.3 F 76 20 119/70 96 07/19/18 00:19 07/19/18 00:19 07/19/18 00:19 07/19/18 00:19 07/19/18 00:19 - Medications Medications: Current Medications Donepezil HCl (Aricept) 5 mg PO HS [facility] Last Admin: 07/18/18 21:36 Dose: 5 mg Lorazepam (Ativan) 1 mg IM Q8 PRN PRN Reason: Agitation Memantine (Namenda) 5 mg PO BID [facility] Last Admin: 07/18/18 16:23 Dose: 5 mg - Labs Labs: 07/15/18 04:00 07/15/18 04:00 PT 11.6 Seconds (9.8-13.1) 07/13/18 13:40 INR 1.0 07/13/18 13:40 APTT 31.2 Seconds (25.6-37.1) 07/13/18 13:40 - Head Exam Head Exam: NORMAL INSPECTION - Eye Exam Eye Exam: Normal appearance - ENT Exam ENT Exam: Mucous Membranes Moist - Respiratory Exam Respiratory Exam: Clear to Ausculation Bilateral - Cardiovascular Exam Cardiovascular Exam: REGULAR RHYTHM - GI/Abdominal Exam GI & Abdominal Exam: Normal Bowel Sounds - Neurological Exam Neurological Exam: Altered, Awake Assessment and Plan (1) Syncope Status: Acute (2) Amnesia memory loss Status: Acute (3) Dementia Status: Acute - Assessment and Plan (Free Text) Plan: Cont meds phys therapy for eval and ambulation gait and balance cont to monitor
--- NOTE | 2018-07-19 07:47 | CP.PCM.PN ---
Subjective - Date & Time of Evaluation Date of Evaluation: 07/17/18 Time of Evaluation: 17:00 - Subjective Subjective: patient is very unstable with her gait has persistent confusion Still with no recollection of the event. noted resolving ecchymoses on the face. denies any headaches No chest pain or SOB. CTA head and neck are normal. Objective - Vital Signs/Intake and Output Vital Signs (last 24 hours): Temp Pulse Resp BP Pulse Ox 98.3 F 76 20 119/70 96 07/19/18 00:19 07/19/18 00:19 07/19/18 00:19 07/19/18 00:19 07/19/18 00:19 - Medications Medications: Current Medications Donepezil HCl (Aricept) 5 mg PO HS [facility] Last Admin: 07/18/18 21:36 Dose: 5 mg Lorazepam (Ativan) 1 mg IM Q8 PRN PRN Reason: Agitation Memantine (Namenda) 5 mg PO BID [facility] Last Admin: 07/18/18 16:23 Dose: 5 mg - Labs Labs: 07/15/18 04:00 07/15/18 04:00 PT 11.6 Seconds (9.8-13.1) 07/13/18 13:40 INR 1.0 07/13/18 13:40 APTT 31.2 Seconds (25.6-37.1) 07/13/18 13:40 - Head Exam Head Exam: NORMAL INSPECTION - Eye Exam Eye Exam: Normal appearance - Respiratory Exam Respiratory Exam: Clear to Ausculation Bilateral - Cardiovascular Exam Cardiovascular Exam: REGULAR RHYTHM - GI/Abdominal Exam GI & Abdominal Exam: Normal Bowel Sounds - Neurological Exam Neurological Exam: Altered Assessment and Plan (1) Syncope Status: Acute (2) Amnesia memory loss Status: Acute (3) Dementia Status: Acute (4) Fall Status: Acute (5) LBBB (left bundle branch block) Status: Acute - Assessment and Plan (Free Text) Plan: Cont meds adjust meds increase namenda start aricept
--- NOTE | 2018-07-19 07:50 | CP.PCM.PN ---
Subjective - Date & Time of Evaluation Date of Evaluation: 07/18/18 Time of Evaluation: 14:00 - Subjective Subjective: Noted to have significant improvement with mentation More alert and oriented Has no headaches. Objective - Vital Signs/Intake and Output Vital Signs (last 24 hours): Temp Pulse Resp BP Pulse Ox 98.3 F 76 20 119/70 96 07/19/18 00:19 07/19/18 00:19 07/19/18 00:19 07/19/18 00:19 07/19/18 00:19 - Medications Medications: Current Medications Donepezil HCl (Aricept) 5 mg PO HS [facility] Last Admin: 07/18/18 21:36 Dose: 5 mg Lorazepam (Ativan) 1 mg IM Q8 PRN PRN Reason: Agitation Memantine (Namenda) 5 mg PO BID [facility] Last Admin: 07/18/18 16:23 Dose: 5 mg - Labs Labs: 07/15/18 04:00 07/15/18 04:00 PT 11.6 Seconds (9.8-13.1) 07/13/18 13:40 INR 1.0 07/13/18 13:40 APTT 31.2 Seconds (25.6-37.1) 07/13/18 13:40 - Head Exam Head Exam: NORMAL INSPECTION - Eye Exam Eye Exam: Normal appearance - Cardiovascular Exam Cardiovascular Exam: REGULAR RHYTHM - GI/Abdominal Exam GI & Abdominal Exam: Normal Bowel Sounds - Neurological Exam Neurological Exam: Awake Assessment and Plan (1) Syncope Status: Acute (2) Amnesia memory loss Status: Acute (3) Dementia Status: Acute (4) Fall Status: Acute (5) LBBB (left bundle branch block) Status: Acute - Assessment and Plan (Free Text) Plan: Cont meds Cont Tx Cont PT discharge plans.
--- NOTE | 2018-07-19 17:22 | PCM.EEG ---
Electroencephalogram Report - Electroencephalogram Report Procedure Date: 07/16/18 Condition of Recording: Awake, Drowsy Medication: Donepezil, memantine. Interpretation: This was a 16 -channel EEG, 1-channel EKG routine EEG performed using an [employer] machine. Electrodes were applied using the 10/20 international placement system. During active states, the EEG contained symmetric 10-20 Hz,20-30 uV activity seen bi-frontally. . During resting wakefulness there was a symmetric posterior dominant rhythm at 8.5-9.5 Hz, 30-50 uV, which was reactive to eye opening and closing. . Drowsiness was associated with fragmentation of the posterior dominant rhythm and with slow roving eye movements. Hyperventilation was not performed. Photic stimulation was performed and there were no changes on the record. Focal abnormality; none ECG shows occasional PVcs, this should be correlated with the patient's EKG Impression: Impression: This is a normal awake and drowsy electroencephalogram.
--- NOTE | 2018-07-20 12:47 | PQF ---
PROVIDER RESPONSE TEXT: Acute delirium with chronic dementia REVIEWER QUERY TEXT: Conflicting Documentation Clarification A single mention or documentation of multiple diagnoses ( Confusion R/O Dementia versus Delirium, Ne urology with Syncope ) for the same clinical presentation appears in the record. Please clarify AFTER WORKUP if Dementia and Delirium are ruled in or ruled out. Etiology of confusio n Neurology: Syncope: It is not clear what actually transpired, but it appears that the patient fell, p robably lost consciousness and has lacerations on her head. There is no evidence of intracranial inju ry on CT head. However, the patient will require cardiac work-up and should be on telemetry. Please clarify the diagnosis/diagnoses Please also document if the condition is: -- Confirmed and current -- Confirmed, treated and resolved -- Ruled out -- Other, please specify The patient's Clinical Indicators include: Patient was walking [place] from the [place] and she fell sustaining a laceration above the left eye. Workup in progress. Query created by: Gema Anderson on 07/16/2018 10:18 AM Electronically signed by: Derek Salvador 07/20/2018 12:43 PM
[2018-07-20 16:50] VITALS: BP 143/81; PULSE 79; RESP 18; TEMP 97.6; O2SAT 94
== END 2018-07-20 17:50 | DRG 884 ==
LOC: H.ER 11:52 → H.ERHOLD 17:04 → H.MEDSURG1 18:43 → H.TEL 07-15 13:18 → H.MEDSURG1 07-18 01:22
PROVIDERS: ADMIT Family Medicine; ATTEND Family Medicine
PROC: 0HQ1XZZ Repair Face Skin, External Approach (ICD-10-PCS; principal; 2018-07-13)
PROC: 3E0234Z Introduction of Serum, Toxoid and Vaccine into Muscle, Percutaneous Approach (ICD-10-PCS; 2018-07-13)
DX: F03.90 Unspecified dementia, unspecified severity, without behavioral disturbance, psychotic disturbance, mood disturbance, and anxiety (principal); F05 Delirium due to known physiological condition; R55 Syncope and collapse; S01.81XA Laceration without foreign body of other part of head, initial encounter; I44.7 Left bundle-branch block, unspecified; Z23 Encounter for immunization; W19.XXXA Unspecified fall, initial encounter; R26.81 Unsteadiness on feet; F06.8 Other specified mental disorders due to known physiological condition

== ENCOUNTER 2018-09-02 13:56 | Emergency (ER) | payer MEDICARE ==
[2018-09-02 14:15] VITALS: TEMP 98.1
[2018-09-02] MEDS ORDERED: Iohexol 240 (50 ml) PO STA (15:52)
[2018-09-02 16:00] LABS: BASO # 0.1 K/uL (0.0-0.2); BASO % 0.6 % (0.0-2.0); EOS # 0.1 K/uL (0.0-0.7); EOS % 1.5 % (0.0-4.0); HEMOGLOBIN 13.5 g/dL (12.0-16.0); LYMPH # 2.3 K/uL (1.0-4.3); LYMPH % 26.6 % (20.0-40.0); MEAN CELL VOLUME 85.1 fl (81.0-99.0); MEAN CORPUSCULAR HGB CONC 32.9 g/dL (33.0-37.0); MEAN PLATELET VOLUME 7.8 fl (7.2-11.7); MONO # 0.5 K/uL (0.0-0.8); MONO % 6.3 % (0.0-10.0); NEUT # 5.6 K/uL (1.8-7.0); RBC 4.81 Mil/uL (3.80-5.20); RED CELL DISTRIBUTION WIDTH 14.7 % (11.5-14.5); WHITE BLOOD COUNT 8.6 K/uL (4.8-10.8)
[2018-09-02 16:07] LABS: INR 1.1; PROTHROMBIN TIME 12.4 Seconds (9.8-13.1)
[2018-09-02 16:09] LABS: PARTIAL THROMBOPLASTIN TIME 31.2 Seconds (25.6-37.1)
[2018-09-02 16:15] LABS: ALB/GLOB RATIO 1.1 (1.0-2.1); ALBUMIN 4.3 g/dL (3.5-5.0); ALT/SGPT 20 U/L (9-52); AST/SGOT 25 U/L (14-36); BLOOD UREA NITROGEN 16 mg/dl (7-17); CALCIUM 9.4 mg/dL (8.4-10.2); GFR NON-AFRICAN AMERICAN > 60
--- NOTE | 2018-09-02 16:44 | RAD ---
Date of service: 09/02/2018 HISTORY: possible admission COMPARISON: 07/13/2018 FINDINGS: LUNGS: No active pulmonary disease. PLEURA: No significant pleural effusion identified, no pneumothorax apparent. CARDIOVASCULAR: No atherosclerotic calcification present Normal. OSSEOUS STRUCTURES: No significant abnormalities. VISUALIZED UPPER ABDOMEN: Normal. OTHER FINDINGS: None. IMPRESSION: No active disease. No significant interval change compared to the prior examination(s).
[2018-09-02 16:46] LABS: VENOUS BLOOD GAS BASE EXCESS 0.3 mmol/L (0.0-2.0); VENOUS BLOOD GAS PCO2 42 mmHg (40-60); VENOUS BLOOD GAS PO2 21 mm/Hg (30-55); VENOUS BLOOD PH 7.39 (7.32-7.43)
[2018-09-02] MEDS ORDERED: Iohexol 240 (50 ml) ONE (16:58)
--- NOTE | 2018-09-02 17:40 | ED PDOC ---
HPI: General Adult Time Seen by Provider: 09/02/18 15:25 Chief Complaint (Nursing): Female Genitourinary Chief Complaint (Provider): rectal bleed History Per: Patient, Family History/Exam Limitations: no limitations Onset/Duration Of Symptoms: Hrs (today) Additional Complaint(s): Yaquelin Crawford is an 83 year old female, with a past medical history of HTN, dementia and unclear abdominal surgery, who presents to the emergency department accompanied by family member complaining of an episode of rectal bleeding today. Patient states she had an episode of rectal bleed after she was straining due to constipation. She has not had symptoms since but reports having nonbloody diarrhea following the episode. Family member insists blood was coming from vagina because she saw blood in patient's toilet paper after she wiped. Patient denies any previous history of rectal or vaginal bleeding before today. She denies any fever, chills, nausea, vomit, weakness, dizziness or other medical complaints. Patient with a previous abdominal surgery but cannot remember what it was for. PMD: Jose Ruby Past Medical History Reviewed: Historical Data, Nursing Documentation, Vital Signs Vital Signs: Last Vital Signs Temp 98.1 F 09/02/18 14:14 Pulse 80 09/02/18 14:14 Resp 16 09/02/18 14:14 BP 129/92 H 09/02/18 14:14 Pulse Ox 97 09/02/18 14:14 - Medical History PMH: Alzheimer's Disease, Dementia, Depression, HTN Denies: Chronic Kidney Disease - Surgical History Other surgeries: unclear abdominal surgery - Family History Family History: States: Unknown Family Hx - Social History Current smoker - smoking cessation education provided: No Alcohol: None Drugs: Denies - Home Medications Home Medications: Ambulatory Orders Medication Instructions Recorded Donepezil HCl [Aricept] 5 mg PO HS 09/02/18 Meclizine [Meclizine*] 25 mg PO DAILY PRN 09/02/18 Memantine [Namenda] 5 mg PO BID 09/02/18 Mirtazapine [Remeron] 15 mg PO HS 09/02/18 amLODIPine [Norvasc] 5 mg PO DAILY 09/02/18 - Allergies Allergies/Adverse Reactions: Allergies Allergy/AdvReac Type Severity Reaction Status Date / Time No Known Allergies Allergy Verified 09/02/18 14:14 Review of Systems ROS Statement: Except As Marked, All Systems Reviewed And Found Negative Constitutional: Negative for: Fever, Chills Gastrointestinal: Positive for: Hematochezia. Negative for: Nausea, Vomiting Neurological: Negative for: Weakness, Dizziness Physical Exam - Reviewed Nursing Documentation Reviewed: Yes Vital Signs Reviewed: Yes - Physical Exam Appears: Positive for: No Acute Distress Head Exam: Positive for: ATRAUMATIC, NORMAL INSPECTION, NORMOCEPHALIC Skin: Positive for: Normal Color, Warm, Dry Eye Exam: Positive for: Normal appearance, EOMI, PERRL Neck: Positive for: Normal, Painless ROM, Supple Cardiovascular/Chest: Positive for: Regular Rate, Rhythm. Negative for: Murmur Respiratory: Positive for: Normal Breath Sounds. Negative for: Respiratory Distress Gastrointestinal/Abdominal: Positive for: Normal Exam, Soft. Negative for: Tenderness, Guarding, Rebound Pelvic Exam: Positive for: Other (No other abnormalities). Negative for: Blood (No blood in introitus) Back: Positive for: Normal Inspection. Negative for: L CVA Tenderness, R CVA Tenderness, Vertebral Tenderness Rectal: Positive for: Normal Exam (No stool in rectal vault, no blood per rectum.), Other (Chassis Engineer: HERMELINDO Wallace. ). Negative for: Hemorrhoids (or visible fissures) Extremity: Positive for: Normal ROM (Full ROM of all extremities). Negative for: Deformity Neurologic/Psych: Positive for: Alert, Oriented (person, place and time), Gait (steady. Elderly woman ambulatory w/o deficits). Negative for: Motor/Sensory Deficits - Laboratory Results Result Diagrams: 09/02/18 15:45 09/02/18 15:45 - ECG O2 Sat by Pulse Oximetry: 97 (RA) Pulse Ox Interpretation: Normal Medical Decision Making Medical Decision Making: Time: 15:25 Initial Impression: Work up for possible GI bleed. Per family, symptoms have occurred before with increasing concern, also unclear abdominal surgical history. Ordered labs, fecal occult blood test, Abd/pelvis CT and reassess patient. Initial Plan: --Type and screen --VBG Shock Panel --Abd Pelvis PO & IV Contrast [CT] --EKG --CMP --CBC w/ differential --PTT --PT --Chest portable [RAD] --Omnipaque 240 50 ml PO --Occult blood, stool --UA --Reevaluation 16:40 CXR FINDINGS: LUNGS: No active pulmonary disease. PLEURA: No significant pleural effusion identified, no pneumothorax apparent. CARDIOVASCULAR: No atherosclerotic calcification present Normal. OSSEOUS STRUCTURES: No significant abnormalities. VISUALIZED UPPER ABDOMEN: Normal. OTHER FINDINGS: None. IMPRESSION: No active disease. No significant interval change compared to the prior examination(s). 19:27 Abdomen/Pelvis CT FINDINGS: LUNG BASES: The lung bases appear clear. No pleural effusions are seen. LIVER: Unremarkable. GALLBLADDER AND BILE DUCTS: The gallbladder appears within normal limits. No radioopaque gallstones are seen. No biliary ductal dilatation is evident. PANCREAS: Unremarkable. SPLEEN: Unremarkable. ADRENAL GLANDS: Unremarkable. KIDNEYS, URETERS, AND BLADDER: The kidneys appear within normal limits in size. There is no hydronephrosis or hydroureter. No urinary calculi are seen. Left renal cyst of 4 cm. STOMACH AND BOWEL: Unremarkable appearance of the stomach and bowel. No evidence of bowel obstruction. No evidence suggesting enteritis or colitis. There is extensive diverticular changes involving the sigmoid and distal descending colon with some thickening of the wall of the colon. There is no pericolonic stranding or abscess. APPENDIX: No evidence of acute appendicitis on CT examination. PERITONEUM: No free fluid. No free air. LYMPH NODES: No lymphadenopathy is evident. VASCULATURE: No evidence of abdominal aortic aneurysm. BONES: No aggressive appearing osseous lesion. No acute osseous pathology evident. IMPRESSION: Extensive diverticular changes involving the sigmoid colon and dista l descending colon with some thickening of the wall of the colon. No significant pericolonic stranding or abscess. Left renal cyst. 19:30 Imaging unremarkable. Labs show blood in urine but no sign of infection. Patient and daughter informed of findings and will follow up with PMD. At this time p obdulio is medically stable for discharge home. Scribe Attestation: Documented by Bliane Huang, acting as a scribe for Nupur Galvan MD. Provider Scribe Attestation: All medical record entries made by the Scribe were at my direction and personally dictated by me. I have reviewed the chart and agree that the record accurately reflects my personal performance of the history, physical exam, medical decision making, and the department course for this patient. I have also personally directed, reviewed, and agree with the discharge instructions and disposition. Disposition - Clinical Impression Clinical Impression: Hematuria, Diverticulitis - Disposition Disposition: Routine/Home Disposition Time: 19:35 Condition: IMPROVED Additional Instructions: Follow up with primary medical doctor regarding blood in the urine. The CT scan shows diverticulitis but no emergency conditions. Follow up with primary medical doctor in one week. Return to the emergency department if symptoms worsen or if new symptoms develop. Instructions: Blood in the Urine (Hematuria) in Adults, Diverticulitis (DC) Forms: [facility] (Mongolian) Print Language: SAMI
[2018-09-02] MEDS ORDERED: Sodium Chloride 0.9% 50 ML IV ONE (18:20)
[2018-09-02] MEDS ORDERED: Iohexol 300 100 ML IJ ONE (18:20)
[2018-09-02 18:28] LABS: SQUAMOUS EPITHIAL 2 /hpf (0-5); URINE BILIRUBIN NEGATIVE (NEGATIVE); URINE BLOOD MODERATE (NEGATIVE); URINE CLARITY CLEAR (Clear); URINE COLOR YELLOW (YELLOW); URINE GLUCOSE (UA) NEG (NEGATIVE); URINE LEUKOCYTE ESTERASE NEG Leu/uL (Negative); URINE PROTEIN NEGATIVE (NEGATIVE); URINE UROBILINOGEN 0.2-1.0 mg/dL (0.2-1.0)
[2018-09-02 19:50] VITALS: BP 127/88; PULSE 66; RESP 20
[2018-09-02 19:55] VITALS: O2SAT 97
--- NOTE | 2018-09-03 10:44 | CARD ---
APPROVED REPORT Date of service: 09/02/2018 EKG Measurement Heart [id number] <Conclusion> Normal sinus rhythm with sinus arrhythmia Left axis deviation LBBB Abnormal ECG
--- NOTE | 2018-09-03 10:49 | CT ---
Date of service: 09/02/2018 PROCEDURE: CT Abdomen and Pelvis with contrast HISTORY: GI bleed COMPARISON: None. TECHNIQUE: Intravenous contrast dose: 85 cc Omnipaque 300. Radiation dose: Total exam DLP = 349.04 mGy-cm. This CT exam was performed using one or more of the following dose reduction techniques: Automated exposure control, adjustment of the mA and/or kV according to patient size, and/or use of iterative reconstruction technique. FINDINGS: LOWER THORAX: Unremarkable. LIVER: Unremarkable. No gross lesion or ductal dilatation. GALLBLADDER AND BILE DUCTS: Unremarkable. PANCREAS: Unremarkable. No gross lesion or ductal dilatation. SPLEEN: Unremarkable. ADRENALS: Unremarkable. No mass. KIDNEYS AND URETERS: Unremarkable. No hydronephrosis. No solid mass. Incidental finding(s): 4 cm simple cyst projects off the inferior aspect of the left kidney. Smaller cortical cyst midpole region left kidney 1.2 cm. VASCULATURE: Unremarkable. No aortic aneurysm. No atherosclerotic calcification or mural plaque present. BOWEL: Diverticulosis without an acute inflammatory component or other associated pathologic process. APPENDIX: Normal appendix. PERITONEUM: Unremarkable. No free fluid. No free air. LYMPH NODES: Unremarkable. No enlarged lymph nodes. BLADDER: Unremarkable. REPRODUCTIVE: Unremarkable. BONES: No acute fracture. OTHER FINDINGS: None. IMPRESSION: No significant or acute findings to account for/ related to the clinical presentation. Additional benign and/or incidental findings described above. Concordant results (preliminary interpretation) provided by [employer]. Procedure Completed: 19:05. Preliminary Report: Dictated and Authenticated: 19:27. Final Interpretation: 10:44. September 03, 2018
== END 2018-09-02 19:43 | disposition home or self-care (01) ==
LOC: H.ER 13:56
DX: R31.9 Hematuria, unspecified (principal); K57.92 Diverticulitis of intestine, part unspecified, without perforation or abscess without bleeding; K59.00 Constipation, unspecified; F02.80 Dementia in other diseases classified elsewhere, unspecified severity, without behavioral disturbance, psychotic disturbance, mood disturbance, and anxiety; F32.9 Major depressive disorder, single episode, unspecified; G30.9 Alzheimer's disease, unspecified; I10 Essential (primary) hypertension; Z79.899 Other long term (current) drug therapy; N28.1 Cyst of kidney, acquired
CPT/HCPCS: 71045; 74177; 80053; 81003; 82803; 85025; 85610; 85730; 86850; 86900; 93005; 99284; Q9966; Q9967